=== PATIENT | male | born 1980 | race Two or more races ===

== ENCOUNTER 2025-06-08 14:10 | Inpatient (IN) | payer BC, MEDICAID ==
[~2025-06-08] VITALS: Ht 182.9 cm; Wt 78.3 kg
--- NOTE | 2025-06-08 15:02 | DVH ---
CT HEAD WITHOUT CONTRAST INDICATION: fall off ladder COMPARISON: None TECHNIQUE: CT of the head without intravenous contrast. RADIATION DOSE: CTDIvol: 60.63 mGy, DLP: 1093.13 mGy*cm FINDINGS: There is no evidence of acute intracranial hemorrhage, extra-axial collection, mass effect, midline shift, herniation or hydrocephalus. The ventricles, sulci and cisterns are age appropriate. The flor-white differentiation is intact. The visualized paranasal sinuses and mastoid air cells are clear. The surrounding soft tissues and osseous structures are unremarkable. IMPRESSION: 1. No evidence of acute intracranial hemorrhage, mass effect or hydrocephalus.
--- NOTE | 2025-06-08 15:17 | DVH ---
CLINICAL INDICATION: left arm pain TECHNIQUE: 4 radiographic views of the left elbow were obtained. Comparison: None FINDINGS/IMPRESSION: Joint effusion with displacement of the olecranon and antecubital fat pads. Comminuted fracture of the proximal ulna is noted with displacement of the proximal fragment. Displaced fracture of the radial head is noted.
[2025-06-08] MEDS: HYDROcodone-ACET 5/325MG TAB PO ONE (16:01)
--- NOTE | 2025-06-08 16:14 | ED.PDOC ---
Musculoskeletal HPI Comments This is a 44 year-old male who presents to the ED with a chief complaint of L arm pain S/P fall hours ago. Patient reports hanging up [place] lights when he fell off the ladder, and the ladder fell onto his the L arm. Patient has no further complaints at this time and otherwise denies any head trauma, LOC, dizziness, weakness, or fatigue. Chief Complaint: Upper Extremity Time Seen by MD: 15:32 Reviewed Notes: Medications, Allergies Allergies: Coded Allergies: NO KNOWN ALLERGIES (Unverified , 06/08/25) Information Source: Patient Mode of Arrival: Ambulatory Location: Left Extremity Location: Arm Timing: Hours Prehospital treatment: None Severity: Moderate Pain: Moderate Circumstances: Fall Onset of Symptoms: After Trauma Symptoms: Swelling, Pain Associated signs and symptoms: Arm pain Past Medical History PAST MEDICAL HISTORY: Denies Surgical History: Denies all surgeries Family History Family History: Unknown Social History Smoker: Non-Smoker Alcohol: Denies ETOH Use Drugs: Denies Drug Use Lives In: Home Constitutional: denies: chills, diaphoresis, fatigue, fever, malaise, sweats, weakness, others EENTM: denies: blurred vision, double vision, ear bleeding, ear discharge, ear drainage, ear pain, ear ringing, eye pain, eye redness, hearing loss, mouth pain, mouth swelling, nasal discharge, nose bleeding, nose congestion, nose pain, photophobia, tearing, throat pain, throat swelling, voice changes, others Respiratory: denies: cough, hemoptysis, orthopnea, SOB at rest, shortness of breath, SOB with excertion, stridor, wheezing, others Cardiovascular: denies: chest pain, dizzy spells, diaphoresis, Dyspnea on exertion, edema, irregular heart beat, left arm pain, lightheadedness, palpitations, PND, syncope, others Gastrointestinal: denies: abdomen distended, abdominal pain, blood streaked bowels, constipated, diarrhea, dysphagia, difficulty swallowing, hematemesis, melena, nausea, poor appetite, poor fluid intake, rectal bleeding, rectal pain, vomiting, others Genitourinary: denies: burning, dysuria, flank pain, frequency, hematuria, incontinence, penile discharge, penile sore, pain, testicle pain, testicle swelling, urgency, others Neurological: denies: dizziness, fainting, headache, left sided numbness, left sided weakness, numbness, paresthesia, pre-existing deficit, right sided numbne ss, right sided weakness, seizure, speech problems, tingling, tremors, weakness, others Musculoskeletal: reports: joint pain, joint swelling; denies: back pain, gout, muscle pain, muscle stiffness, neck pain, others Integumetry: denies: bruises, change in color, change in hair/nails, dryness, laceration, lesions, lumps, rash, wounds, others Allergic/Immunocompromised: denies: Difficulty Healing, Frequent Infections, Hives, Itching, others Hematologic/Lymphatic: denies: anemia, blood clots, easy bleeding, easy bruising, swollen glands, others Endocrine: denies: excessive hunger, excessive sweating, excessive thirst, excessive urination, flushing, intolerance to cold, intolerance to heat, unexplained weight gain, unexplained weight loss, others Psychiatric: denies: anxiety, bipolar disorder, depression, hopeless, panic disorder, schizophrenia, sleepless, suicidal, others All Other Systems: Reviewed and Negative Physical Exam General Appearance: No Apparent Distress HEENT: Pharynx Normal Neck: Normal Inspection Respiratory: No Respiratory Distress Cardiovascular: No Edema Breast Exam: Deferred Gastrointestinal: No Organomegaly Genitalia: Deferred Pelvic: Deferred Rectal: Deferred Extremities: Other (obvious deformity to left elbow, pulses and sensation intact) Neurologic: Normal Mood Cerebellar Function: NOT DONE Reflexes: NOT DONE Skin: Normal Color Lymphatic: NOT DONE Was a procedure done? Was a procedure done?: No Differential Diagnosis EXT Differential Diagnosis: Fracture, Sprain, Dislocation X-Ray, Labs, Meds, VS Vital Signs Date Time Temp Pulse Resp B/P (MAP) Pulse Ox O2 Delivery O2 Flow Rate FiO2 06/08/25 18:53 98.1 100 18 108/67 (81) 97 98.1 06/08/25 15:55 98.3 101 18 122/90 (101) 100 98.3 06/08/25 15:55 101 18 100 Room Air 06/08/25 14:15 97.7 96 13 112/80 96 97.7 Lab Test 06/08/25 18:58 Range/Units White Blood Count 15.3 H 4.4-10.8 10^3/uL Red Blood Count 5.06 4.5-5.90 10^6/uL Hemoglobin 15.6 13.5-17.5 g/dL Hematocrit 46.5 41.0-53.0 % Mean Corpuscular Volume 91.8 80.0-100.0 fL Mean Corpuscular Hemoglobin 30.9 28.0-32.0 pg Mean Corpuscular Hemoglobin Concent 33.6 32.0-36.0 g/dL Red Cell Distribution Width 13.0 11.8-14.3 % Platelet Count 385 140-450 10^3/uL Mean Platelet Volume 6.1 L 6.9-10.8 fL Neutrophils (%) (Auto) 79.6 37.0-80.0 % Lymphocytes (%) (Auto) 11.3 10.0-50.0 % Monocytes (%) (Auto) 8.6 0.0-12.0 % Eosinophils (%) (Auto) 0.1 0.0-7.0 % Basophils (%) (Auto) 0.4 0.0-2.0 % Neutrophils # (Auto) 12.2 H 1.6-8.6 10 ^3/uL Lymphocytes # (Auto) 1.7 0.4-5.4 10 ^3/uL Monocytes # (Auto) 1.3 0-1.3 10 ^3/uL Eosinophils # (Auto) 0 0-0.8 10 ^3/uL Basophils # (Auto) 0.1 0-0.2 10 ^3/uL Nucleated Red Blood Cells 0.0 % Prothrombin Time 10.9 9.3-11.8 sec Prothrombin Time INR 1.03 0.9-1.15 Activated Partial Thromboplast Time 24.1 L 24.5-34.5 SEC Sodium Level 140 136-145 mmol/L Potassium Level 4.5 3.5-5.1 mmol/L Chloride Level 101 98-107 mmol/L Carbon Dioxide Level 27 20-31 mmol/L Anion Gap 12 5-15 Blood Urea Nitrogen 13 9-23 mg/dL Creatinine 1.60 H 0.700-1.30 mg/dL Glomerular Filtration Rate Calc 54 >90 mL/min BUN/Creatinine Ratio 8.1 L 10.0-20.0 Serum Glucose 149 H 74-106 mg/dL Calcium Level 9.4 8.7-10.4 mg/dL Current Medications Medications (Trade) Dose Ordered Sig/Cameron Route Start Time Stop Time Status Last Admin Acetaminophen/ Hydrocodone Bitart ([place] 5/325MG Tab) 1 tab ONCE ONCE PO 06/08/25 14:30 06/08/25 14:31 DC 06/08/25 16:[address] [address] Ph: [phone] DIAGNOSTIC IMAGING Diagnostic Imaging Report : [id number] Signed PATIENT: CAM MITCHELL ACCT: [id number] UNIT: [id number] : 1980 LOC: ER ROOM / BED: / AGE / SEX: 44 / M ADM STATUS: REG ER SERVICE 26 ORDERING PHYSICIAN: CASA JAMIL MD PROCEDURE(s): HWOCT - HEAD WITHOUT CONTRAST REASON: fall off ladder ORDER NUMBER(s): [id number], ACCESSION NUMBER(s): [id number] CT HEAD WITHOUT CONTRAST INDICATION: fall off ladder COMPARISON: None TECHNIQUE: CT of the head without intravenous contrast. RADIATION DOSE: CTDIvol: 60.63 mGy, DLP: 1093.13 mGy*cm FINDINGS: There is no evidence of acute intracranial hemorrhage, extra-axial collection, mass effect, midline shift, herniation or hydrocephalus. The ventricles, sulci and cisterns are age appropriate. The flor-white differentiation is intact. The visualized paranasal sinuses and mastoid air cells are clear. The surrounding soft tissues and osseous structures are unremarkable. IMPRESSION: 1. No evidence of acute intracranial hemorrhage, mass effect or hydrocephalus. [address] [address] Ph: [phone] DIAGNOSTIC IMAGING Diagnostic Imaging Report : [id number] Signed PATIENT: CAM MITCHELL ACCT: [id number] UNIT: [id number] : 1980 LOC: ER ROOM / BED: / AGE / SEX: 44 / M ADM STATUS: REG ER SERVICE 26 ORDERING PHYSICIAN: CASA JAMIL MD PROCEDURE(s): LELB3 - L ELBOW 3 VIEW XRAY REASON: left arm pain ORDER NUMBER(s): [id number], ACCESSION NUMBER(s): [id number] CLINICAL INDICATION: left arm pain TECHNIQUE: 4 radiographic views of the left elbow were obtained. Comparison: None FINDINGS/IMPRESSION: Joint effusion with displacement of the olecranon and antecubital fat pads. Comminuted fracture of the proximal ulna is noted with displacement of the proximal fragment. Displaced fracture of the radial head is noted. Time of 1ST Reevaluation: 16:19 Reevaluation 1ST: Unchanged Patient Education/Counseling: Diagnosis, Treatment Family Education/Counseling: No Family Present Departure 1 Departure Time of Disposition: 18:25 (Patient with a comminuted fracture of the left elbow likely requiring surgery. Discussed the case with orthopedics who recommended admission to the hospital splinting and they possibly will take to surgery tomorrow.) Impression: Primary Impression: Left elbow fracture Disposition: ADMITTED INPATIENT Admit to: Med Surg Condition: Serious Critical Care Note Critical Care Time?: No Stability Stability form required: No Heart Score Heart Score: Heart Score Response (Comments) Value History N/A 0 EKG N/A 0 Age N/A 0 Risk Factors N/A 0 Troponin N/A 0 Total 0 I personally scribed for CASA JAMIL MD ([email or web address]) on 06/08/25 at 16:14. Electronically submitted by Keira [facility]). CASA JAMIL MD Jun 08, 2025 16:14
--- NOTE | 2025-06-08 19:03 | DVH ---
EXAM: XY CHEST PORTABLE HISTORY: pre-op TECHNIQUE: 1 view of the chest COMPARISON: None FINDINGS/IMPRESSION: LUNGS: No pleural effusion, consolidation, or pneumothorax. MEDIASTINUM: Normal cardiac size . Possible inconspicuous calcific granulomas in the left hilum. If continued clinical concern, consider further evaluation with CT of the chest with contrast. BONES: No acute osseous abnormality. OTHER: None.
[2025-06-08 19:28] LABS: Hematocrit 46.5 % (41.0-53.0); Hemoglobin 15.6 g/dL (13.5-17.5); Mean Corpuscular Hemoglobin 30.9 pg (28.0-32.0); Mean Corpuscular Volume 91.8 fL (80.0-100.0); Nucleated Red Blood Cells % 0.0 %
[2025-06-08 19:36] LABS: Chloride 101 mmol/L (98-107); Potassium 4.5 mmol/L (3.5-5.1); Sodium 140 mmol/L (136-145)
[2025-06-08 19:37] LABS: Anion Gap 12 (5-15); Carbon Dioxide 27 mmol/L (20-31)
[2025-06-08 19:38] LABS: Calcium 9.4 mg/dL (8.7-10.4)
[2025-06-08 19:41] LABS: INR 1.03 (0.9-1.15); Partial Thromboplastin Time 24.1 SEC (24.5-34.5); Prothrombin Time 10.9 sec (9.3-11.8)
[2025-06-08 19:42] LABS: BUN/Creatinine Ratio 8.1 (10.0-20.0); Blood Urea Nitrogen 13 mg/dL (9-23)
[2025-06-08 19:44] LABS: Glucose 149 mg/dL (74-106)
[2025-06-08] MEDS ORDERED: HYDROcodone-ACET 5/325MG TAB PO PRN (21:15)
[2025-06-08] MEDS: HYDROcodone-ACET 5/325MG TAB PO PRN (21:28)
[2025-06-08] MEDS ORDERED: MORPHINE SULFATE INJ 2 MG/ml SYRG IV PRN ×2 (22:45)
[2025-06-08] MEDS ORDERED: ONDANSETRON HCL 4 MG/2 ML VIAL IV PRN (22:45)
[2025-06-08] MEDS ORDERED: ACETAMINOPHEN 325 MG TAB PO PRN (22:45)
[2025-06-08] MEDS ORDERED: NITROGLYCERIN 0.4 MG SL TAB SL PRN (22:45)
[2025-06-08] MEDS ORDERED: DOCUSATE SOD 100 MG CAP PO PRN (22:45)
--- NOTE | 2025-06-08 22:59 | DVHHP2 ---
History of Present Illness Reason for Visit: Left elbow fracture History of Present Illness The patient is a 44-year-old male who denies past medical history presented to [facility] ED for evaluation of fall with injury. Patient reports that he was hanging up [place] lights when he fell off the ladder, and the l adder fell onto his the left arm with sustained injury. Patient was seen and evaluated in the ED, laboratory data shows elevated WBC 15.3, platelets 385, sodium 140, potassium 4.5, BUN 13, creatinine 1.60, GFR 54, glucose 149, calcium 9.4, blood pressure 108/67, heart rate 100, temperature 98.1 F, O2 saturation 97% on room air. Left elbow x-ray revealing joint effusion with displacement of the olecranon and antecubital fat pads; comminuted fracture of the proximal ulna is noted with displacement of the proximal fragment; displaced fracture of the radial head is noted. Please see medication orders section in the computer. On my assessment, patient denied chest pain, no headache, loss of consciousness, dizziness, diaphoresis, shortness of breaths, no abdominal pain, diarrhea, nausea, vomiting, fever, no chills. Patient was admitted for further evaluation and medical management. Past Medical History Denies past medical history Past Surgical History Denies all surgeries Family History Reviewed, noncontributory to the management of this case. Past Social History The patient lives at home, denies smoking, alcohol or illicit drugs abuse. Review of Systems Constitutional: No: Fever, Chills, Sweats, Weakness, Malaise, Other Eyes: No: Pain, Vision change, Conjunctivae inflammation, Eyelid inflammation, Other, Redness ENT: No: Ear pain, Ear discharge, Nose pain, Nose discharge, Nose congestion, Mouth pain, Mouth swelling, Throat pain, Throat swelling, Other Respiratory: No: Cough, Dry, Shortness of breath, SOB with excertion, Wheezing, Hemoptysis, Pleuritic Pain, Sputum, Wheezing, Other Cardiovascular: No: Chest Pain, Palpitations, Orthopnea, Paroxysmal Noc. Dyspnea, Edema, Lt Headedness, Other Gastrointestinal: No: Nausea, Vomiting, Abdominal Pain, Diarrhea, Constipation, Melena, Hematochezia, Other Genitourinary: No Dysuria, No Frequency, No Incontinence, No Hematuria, No Retention, No Other Musculoskeletal: other ( joint pain, joint swelling;); No: neck pain, shoulder pain, arm pain, back pain, hand pain, leg pain, foot pain Skin: No: Rash, Lesions, Jaundice, Bruising, Other Neurological: No: Weakness, Numbness, Incoordination, Change in speech, Confusion, Seizures, Other Allergies: Coded Allergies: NO KNOWN ALLERGIES (Unverified , 06/08/25) Medications Current Medications Medications Dose Ordered Sig/Cameron Route Start Time Stop Time Status Last Admin Dose Admin Acetaminophen/ Hydrocodone Bitart 1 tab Q6HP PRN PO 06/08/25 21:15 06/08/25 21:28 1 TAB Exam Vital Signs Vital Signs Date Time Temp Pulse Resp B/P (MAP) Pulse Ox O2 Delivery O2 Flow Rate FiO2 06/08/25 20:18 Room Air* 0 21 06/08/25 18:53 98.1 100 18 108/67 (81) 97 98.1 General Appearance: Alert, Oriented X3, Cooperative, No acute distress HEENT: Atraumatic, PERRLA, EOMI, Mucous membr. moist/pink Respiratory: Clear to auscultation, Normal air movement Cardiovascular: Regular rate, Normal S1, Normal S2, No murmurs Abdominal: Normal bowel sounds, Soft, No tenderness, No hepatospenomegaly, No masses Extremities: No clubbing, No cyanosis, No edema, Normal pulses, Other (Left tenderness/swelling) Skin: No rashes, No breakdown, No significant lesion Neuro: Normal gait, Normal speech, Normal tone, Sensation intact, Cranial nerves 3-12 NL, Reflexes 2+, Other (Left elbow pain) Psych/Mental Status: Mental status NL, Mood NL Labs/Xrays Labs Test 06/08/25 18:58 Range/Units White Blood Count 15.3 H 4.4-10.8 10^3/uL Red Blood Count 5.06 4.5-5.90 10^6/uL Hemoglobin 15.6 13.5-17.5 g/dL Hematocrit 46.5 41.0-53.0 % Mean Corpuscular Volume 91.8 80.0-100.0 fL Mean Corpuscular Hemoglobin 30.9 28.0-32.0 pg Mean Corpuscular Hemoglobin Concent 33.6 32.0-36.0 g/dL Red Cell Distribution Width 13.0 11.8-14.3 % Platelet Count 385 140-450 10^3/uL Mean Platelet Volume 6.1 L 6.9-10.8 fL Neutrophils (%) (Auto) 79.6 37.0-80.0 % Lymphocytes (%) (Auto) 11.3 10.0-50.0 % Monocytes (%) (Auto) 8.6 0.0-12.0 % Eosinophils (%) (Auto) 0.1 0.0-7.0 % Basophils (%) (Auto) 0.4 0.0-2.0 % Neutrophils # (Auto) 12.2 H 1.6-8.6 10 ^3/uL Lymphocytes # (Auto) 1.7 0.4-5.4 10 ^3/uL Monocytes # (Auto) 1.3 0-1.3 10 ^3/uL Eosinophils # (Auto) 0 0-0.8 10 ^3/uL Basophils # (Auto) 0.1 0-0.2 10 ^3/uL Nucleated Red Blood Cells 0.0 % Prothrombin Time 10.9 9.3-11.8 sec Prothrombin Time INR 1.03 0.9-1.15 Activated Partial Thromboplast Time 24.1 L 24.5-34.5 SEC Sodium Level 140 136-145 mmol/L Potassium Level 4.5 3.5-5.1 mmol/L Chloride Level 101 98-107 mmol/L Carbon Dioxide Level 27 20-31 mmol/L Anion Gap 12 5-15 Blood Urea Nitrogen 13 9-23 mg/dL Creatinine 1.60 H 0.700-1.30 mg/dL Glomerular Filtration Rate Calc 54 >90 mL/min BUN/Creatinine Ratio 8.1 L 10.0-20.0 Serum Glucose 149 H 74-106 mg/dL Calcium Level 9.4 8.7-10.4 mg/dL PATIENT: CAM MITCHELL ACCT: [id number] UNIT: [id number] : 1980 LOC: ER ROOM / BED: / AGE / SEX: 44 / M ADM STATUS: REG ER SERVICE 1427 ORDERING PHYSICIAN: CASA JAMIL MD PROCEDURE(s): LELB3 - L ELBOW 3 VIEW XRAY REASON: left arm pain ORDER NUMBER(s): [id number], ACCESSION NUMBER(s): [id number] CLINICAL INDICATION: left arm pain TECHNIQUE: 4 radiographic views of the left elbow were obtained. Comparison: None FINDINGS/IMPRESSION: Joint effusion with displacement of the olecranon and antecubital fat pads. Comminuted fracture of the proximal ulna is noted with displacement of the proximal fragment. Displaced fracture of the radial head is noted. ORDERING PHYSICIAN: CASA JAMIL MD PROCEDURE(s): HWOCT - HEAD WITHOUT CONTRAST REASON: fall off ladder ORDER NUMBER(s): [id number], ACCESSION NUMBER(s): [id number] CT HEAD WITHOUT CONTRAST INDICATION: fall off ladder COMPARISON: None TECHNIQUE: CT of the head without intravenous contrast. RADIATION DOSE: CTDIvol: 60.63 mGy, DLP: 1093.13 mGy*cm FINDINGS: There is no evidence of acute intracranial hemorrhage, extra-axial collection, mass effect, midline shift, herniation or hydrocephalus. The ventricles, sulci and cisterns are age appropriate. The flor-white differentiation is intact. The visualized paranasal sinuses and mastoid air cells are clear. The surrounding soft tissues and osseous structures are unremarkable. IMPRESSION: 1. No evidence of acute intracranial hemorrhage, mass effect or hydrocephalus. ORDERING PHYSICIAN: CASA JAMIL MD PROCEDURE(s): CXRP - CHEST PORTABLE REASON: pre-op ORDER NUMBER(s): [id number], ACCESSION NUMBER(s): [id number] EXAM: XY CHEST PORTABLE HISTORY: pre-op TECHNIQUE: 1 view of the chest COMPARISON: None FINDINGS/IMPRESSION: LUNGS: No pleural effusion, consolidation, or pneumothorax. MEDIASTINUM: Normal cardiac size . Possible inconspicuous calcific granulomas in the left hilum. If continued clinical concern, consider further evaluation with CT of the chest with contrast. BONES: No acute osseous abnormality. OTHER: None. SEPSIS Sepsis Screen Date sepsis recognized/suspect: Jun 08, 2025 Time Sepsis recognized/suspect: 1414 Recent Procedure: No On Antibiotic Therapy: No Respiratory Rate >20: No Heart Rate >90: Yes Temp<36 C (96.8 F) or >38.3 C: No SBP <90 or MAP <65 mmHG: No New Acute Mental Status Change: No Is the patient on CPAP, BIPAP,: No Physician Orders * Orthopedic Consult (06/08/25 15:55) Splints (06/08/25 ) Chest Portable (06/08/25 18:24) Electrocardigram (06/08/25 18:24) Electrocardigram (06/08/25 19:24) Electrocardigram (06/08/25 21:24) Hydrocodone-Acet 5/325mg Tab ([place] 5/32 (06/08/25 21:15) Obtain Consent For Anesthesia (06/08/25 21:55) Npo After Midnight (06/08/25 21:55) Npo (Nothing By Mouth) Diet (06/09/25 Breakfast) Obtain Consent For: (06/08/25 21:55) Obtain Consent For Anesthesia (06/08/25 21:55) Ceftriaxone Ivpb Rocephin (06/09/25 09:00) Ceftriaxone Ivpb Rocephin (06/08/25 22:45) Admit (06/08/25 22:36) Allergies (06/08/25 22:36) Code Status (06/08/25 22:36) Sodium Chloride Lock (Saline Lock Ns) (06/09/25 06:00) Oxygen Per Hour (06/08/25 22:36) Ondansetron Hcl (Zofran) (06/08/25 22:45) Docusate Sodium Capsule (Colace Capsule) (06/08/25 22:45) Enoxaparin Sodium (Lovenox) (06/09/25 10:00) Fall Risk Precautions In Place QSHIFT (06/08/25 22:36) Vital Signs Date Time Temp Pulse Resp B/P (MAP) Pulse Ox O2 Delivery O2 Flow Rate FiO2 06/08/25 20:18 Room Air* 0 21 06/08/25 18:53 98.1 100 18 108/67 (81) 97 98.1 06/08/25 15:55 98.3 101 18 122/90 (101) 100 98.3 06/08/25 15:55 101 18 100 Room Air Laboratory Tests Test 06/08/25 18:58 White Blood Count 15.3 10^3/uL (4.4-10.8) H Medications Medications Dose Ordered Sig/Cameron Route Start Time Stop Time Status Last Admin Dose Admin Acetaminophen/ Hydrocodone Bitart 1 tab ONCE ONCE PO 06/08/25 14:30 06/08/25 14:31 DC 06/08/25 16:01 1 TAB Acetaminophen/ Hydrocodone Bitart 1 tab Q6HP PRN PO 06/08/25 21:15 06/08/25 21:28 1 TAB Assessment/Plan Assessment/Plan Left elbow fracture Acute renal injury Hyperglycemia Leukocytosis, unspecified Pain and swelling of left elbow Flank 1. Admit to telemetry unit 2. Breathing treatment 3. Pain control management 4. IV antibiotic management 5. Management of fluids and electrolytes 6. Consultation for orthopedic/hospitalist 7. Diagnostic test left elbow x-ray 8. DVT prophylaxis-on Lovenox 9. Repeat labs CBC, CMP in a.m. 10. Continue with current medical management 11. Treatment plan discussed with patient and RN. Patient verbalized understanding. Plan discussed with: Patient, Other (RN) My Orders Orders - LILLIANA RAMIREZ DNP Procedure Category Date Status Time Hydrocodone-Acet PHA 06/08/25 In Process 5/325mg Tab ([place] 21:15 Ceftriaxone Ivpb PHA 06/09/25 Verified Rocephin 09:00 Ceftriaxone Ivpb PHA 06/08/25 Verified Rocephin 22:45 Admit ADMIT 06/08/25 Verified 22:36 Allergies DYLAN 06/08/25 Verified 22:36 Code Status CODE 06/08/25 Verified 22:36 Sodium Chloride Lock PHA 06/09/25 Verified (Saline Lock Ns) 06:00 Oxygen Per Hour RT 06/08/25 Verified 22:36 Ondansetron Hcl PHA 06/08/25 Verified (Zofran) 22:45 Docusate Sodium PHA 06/08/25 Verified Capsule (Colace 22:45 Enoxaparin Sodium PHA 06/09/25 Verified (Lovenox) 10:00 Fall Risk Precautions DYLAN 06/08/[address] 22:36 Problem List: (1) Left elbow fracture (2) Acute renal injury (3) Hyperglycemia (4) Leukocytosis, unspecified (5) Pain and swelling of left elbow Date of Service: Jun 08, 2025 Billing Provider: LILLIANA RAMIREZ DNP Common Visit Codes: [id number] INP/OBS CARE (HIGH) LILLIANA RAMIREZ DNP Jun 08, 2025 22:59
[2025-06-09] VITALS (10 sets, daily range): BP systolic 119–160; BP diastolic 80–95; PULSE 75–96; RESP 10–18; TEMP 97.4–98.6; O2SAT 96–98
[2025-06-09] MEDS: SODIUM CHLOR 0.9% PF (SALINE LOCK) 10ML VIAL/SYR IV SCH (06:00)
[2025-06-09 08:13] LABS: Hematocrit 43.0 % (41.0-53.0); Hemoglobin 14.5 g/dL (13.5-17.5); Mean Corpuscular Hemoglobin 30.9 pg (28.0-32.0); Mean Corpuscular Volume 91.7 fL (80.0-100.0); Nucleated Red Blood Cells % 0.0 %
[2025-06-09 08:37] LABS: Alanine Aminotransferase 102 U/L (7-40); Albumin 3.8 g/dL (3.2-4.8); Alkaline Phosphatase 100 U/L (46-116); Anion Gap 11 (5-15); BUN/Creatinine Ratio 7.1 (10.0-20.0); Bilirubin, Total 0.9 mg/dL (0.2-1.0); Blood Urea Nitrogen 8 mg/dL (9-23); Calcium 8.9 mg/dL (8.7-10.4); Carbon Dioxide 25 mmol/L (20-31); Chloride 104 mmol/L (98-107); Glucose 101 mg/dL (74-106); Potassium 3.9 mmol/L (3.5-5.1); Sodium 140 mmol/L (136-145); Total Protein 6.6 g/dL (5.7-8.2)
[2025-06-09] MEDS: ENOXAPARIN SOD 40 MG/0.4 ML SYRINGE SC SCH (09:50)
[2025-06-09 13:10] LABS: Urine Protein, UAD Negative (Negative)
[2025-06-09] MEDS ORDERED: fentaNYL CITRATE 100 MCG/2 ML VL ONE (14:04)
[2025-06-09] MEDS ORDERED: MIDAZOLAM HCL 2MG/2ML 2ml VIAL (1mg/ml) ONE (14:04)
[2025-06-09] MEDS ORDERED: ONDANSETRON HCL 4 MG/2 ML VIAL ONE (14:05)
[2025-06-09] MEDS ORDERED: LIDOCAINE 2% (LOCAL ANESTH.) PF 5ml SDV ONE (14:05)
[2025-06-09] MEDS ORDERED: METOCLOPRAMIDE HCL 5MG/ml INJ 2ml VIAL ONE (14:05)
[2025-06-09] MEDS ORDERED: PROPOFOL 10 MG/ML 20 ML IV ONE (14:05)
[2025-06-09] MEDS ORDERED: HYDROmorphone HCL 2 MG/ML VL/or syr ONE (14:35)
[2025-06-09] MEDS ORDERED: LIDOCAINE W/ EPINEPHRINE 2% INJ 20ML VIAL ONE (14:46)
[2025-06-09] MEDS ORDERED: ALBUTEROL SULFATE 90 MCG MDI IN ONE (14:53)
--- NOTE | 2025-06-09 15:08 | DVHOP2 ---
Operative Report - 2 Report Details Date: 06/09/25 Preop Diagnosis: Left comminuted olecranon/ulna/proximal radius fracture Postop Diagnosis: Left comminuted olecranon/ulna/proximal radius fracture Surgeon: Kee Taveras MD Anesthesiologist: Manoj CONNELLY Anesthesia: General Implant: ITS 7 hold proximal ulna plate Consent: The patient was informed of the risks and benefits of the procedure. These include but are not limited to complications of anesthesia, postoperative infection, incomplete relief of symptoms, recurrence of symptoms, damage to blood vessels, nerves and tendons, deep venous thrombosis, pulmonary embolism and possible need for repeat surgery in the future. Estimated Blood Loss: 20 cc Name of Procedure Performed 1. Open reduction internal fixation of left olecranon/proximal ulna fracture 2. Open reduction internal fixation of left proximal radius fracture 3. intraop fluoroscopy Procedure Details Procedure Details: Patient was identified in the preoperative holding area and the surgical site was marked. The consent was verified. He was brought into the operating room and placed supine on the operating table. General anesthesia was administered. Intravenous antibiotics were given. The extremity was prepped and draped in the usual sterile manner. A timeout was called out to confirm the identity of the patient, the nature of surgery, the site of surgery, the availability of implants and x-rays and allergies to medications.Patient placed supine with left arm across the chest on a hand table. Nonsterile tourniquet applied to the proximal arm. The left upper extremity was prepped and draped in the usual sterile fashion. A posterior midline incision was made over the left elbow, centered over the olecranon and extending distally along the subcutaneous border of the ulna. Full-thickness skin flaps were developed. The ulnar nerve was identified, prote cted, and mobilized as needed. The fracture site was exposed by subperiosteal dissection. Hematoma and interposed soft tissue were cleared. The fracture fragments were identified and reduced anatomically, with particular attention to orthodoxy of the articular surface. Patient noted to have a large olecranon fracture with comminution at proximal ulna. The radial head fracture was visualized through olecranon fracture site, and the fragments were reduced anatomically using freer. This maintained reduction. I then reduced the ulna. Definitive fixation was performed using a 7-hole ITS precontoured olecranon plate, contoured to the dorsal aspect of the proximal ulna. The plate was secured proximally and distally with a combination of locking and cortical screws, ensuring at least three bicortical screws in the distal fragment and optimal purchase in the proximal fragment. Fluoroscopy confirmed anatomic reduction and appropriate hardware placement. The articular surface was probed to ensure no step-off or gap. The wound was irrigated with copious normal saline. The ulnar nerve was returned to its anatomic position. The triceps fascia and deep tissues were closed with absorbable sutures. Subcutaneous tissue was closed with 2-0 Vicryl. Skin was closed with rissa. Sterile dressing was applied. A posterior splint was applied with the elbow in approximately 70 degrees of flexion. Condition Good Disposition Still a Patient KEE TAVERAS MD Jun 09, 2025 15:08
[2025-06-09] MEDS ORDERED: METOCLOPRAMIDE HCL 5MG/ml INJ 2ml VIAL IV PRN (15:30)
[2025-06-09] MEDS ORDERED: ONDANSETRON HCL 4 MG/2 ML VIAL IV PRN (15:30)
[2025-06-09] MEDS ORDERED: HYDROmorphone HCL 2 MG/ML VL/or syr IV PRN (15:30)
--- NOTE | 2025-06-09 16:25 | DVHPN2 ---
Subjective Patient is currently in OR for left elbow surgery. Changes from previous H/P or p: No Changes Eyes: No Pain, No Vision change, No Conjunctivae inflammation, No Eyelid inflammation, No Other, No Redness ENT: No Ear pain, No Ear discharge, No Nose pain, No Nose discharge, No Nose congestion, No Mouth pain, No Mouth swelling, No Throat pain, No Throat swelling, No Other Cardiovascular: No Chest Pain, No Palpitations, No Orthopnea, No Paroxysmal Noc. Dyspnea, No Edema, No Lt Headedness, No Other Respiratory: No Cough, No Dry, No Shortness of breath, No SOB with excertion, No Wheezing, No Hemoptysis, No Pleuritic Pain, No Sputum, No Other Gastrointestinal: No Nausea, No Vomiting, No Abdominal Pain, No Diarrhea, No Constipation, No Melena, No Hematochezia, No Other Genitourinary: No Dysuria, No Frequency, No Incontinence, No Hematuria, No Retention, No Other Musculoskeletal: other ( joint pain, joint swelling;); No neck pain, No shoulder pain, No arm pain, No back pain, No hand pain, No leg pain, No foot pain Skin: No Rash, No Lesions, No Jaundice, No Bruising, No Other Objective Vitals Vital Signs Date Time Temp Pulse Resp B/P (MAP) Pulse Ox O2 Delivery O2 Flow Rate FiO2 06/09/25 16:00 81 12 130/94 (106) 99 06/09/25 15:36 Nasal Cannula 2.0 96 06/09/25 15:15 98.6 98.6 Intake/Output Intake and Output 06/09/25 07:00 # Voids 1 Medications Current Medications Medications Dose Ordered Sig/Cameron Route Start Time Stop Time Status Last Admin Dose Admin Acetaminophen/ Hydrocodone Bitart 1 tab Q6HP PRN PO 06/08/25 21:15 06/09/25 09:27 1 TAB Ceftriaxone Sodium 50 ml @ 100 mls/hr DAILY@09 IV 06/09/25 09:00 Sodium Chloride 10 ml Q8HR IV 06/09/25 06:00 06/09/25 06:00 10 ML Ondansetron HCl 4 mg Q4HP PRN IV 06/08/25 22:45 Docusate Sodium 100 mg BIDPRN PRN PO 06/08/25 22:45 Enoxaparin Sodium 40 mg DAILY SC 06/09/25 10:00 Acetaminophen 650 mg Q6HP PRN PO 06/08/25 22:45 Morphine Sulfate 2 mg Q4HPRN PRN IV 06/08/25 22:45 Nitroglycerin 0.4 mg Q5MINP PRN SL 06/08/25 22:45 Morphine Sulfate 2 mg Q30M PRN IV 06/08/25 22:45 Cefazolin Sodium/ Dextrose 50 ml @ 50 mls/hr Q8HR IV 06/09/25 22:00 06/10/25 14:59 Laboratory Results Laboratory Tests 06/09/25 07:36 Chemistry Test 06/08/25 18:58 06/09/25 07:36 Calcium Level 9.4 mg/dL (8.7-10.4) 8.9 mg/dL (8.7-10.4) Albumin 3.8 g/dL (3.2-4.8) Total Protein 6.6 g/dL (5.7-8.2) Coagulation Test 06/08/25 18:58 Prothrombin Time 10.9 sec (9.3-11.8) Prothrombin Time INR 1.03 (0.9-1.15) Activated Partial Thromboplast Time 24.1 SEC (24.5-34.5) L LFT Test 06/09/25 07:36 Alanine Aminotransferase (ALT) 102 U/L (7-40) H Alkaline Phosphatase 100 U/L (46-116) Aspartate Amino Transferase (AST) 72 U/L (13-40) H Total Bilirubin 0.9 mg/dL (0.2-1.0) HgA1c, TSH Test 06/08/25 18:58 Hemoglobin A1c 5.5 % A1C (<5.7) Urinalysis Test 06/09/25 12:38 Urine Color Light-yellow (Yellow) Urine Clarity Clear (Clear) Urine pH 5.5 (5.0-9.0) Urine Specific [place] 1.014 (1.001-1.035) Urine Protein Negative (Negative) Urine Ketones Negative (Negative) Urine Blood Negative /uL (Negative) Urine Nitrite Negative (Negative) Urine Bilirubin Negative (Negative) Urine Urobilinogen Normal mg/dL (Negative) Urine Leukocyte Esterase Negative /uL (Negative) Urine RBC 1 /hpf (0 - 3) Urine Microscopic WBC 3 /HPF (0-3) Urine Squamous Epithelial Cells Few /hpf (<5) Urine Bacteria None seen /hpf (None Seen) Urine Mucus Few (None Seen) Urine Glucose Normal mg/dL (Normal) Assessment/Plan Assessment/Plan 44-year-old male who had a fall from the ladder found to have 1. Left elbow fracture status post ---- Open reduction internal fixation of left olecranon/proximal ulna fracture ----Open reduction internal fixation of left proximal radius fracture 2. Leukocytosis likely reactive 3. Acute kidney injury suspected secondary to vasomotor nephropathy -continue pain meds, DVT GI prophylaxis, Plan discussed with: Other Problem List: (1) Left elbow fracture (2) Pain and swelling of left elbow (3) Acute renal injury (4) Leukocytosis, unspecified Date of Service: Jun 09, 2025 Billing Provider: LUIS ALBERTO BOYCE MD Common Visit Codes: [id number] INP/OBS CARE(HIGH) LUIS ALBERTO BOYCE MD Jun 09, 2025 16:25
--- NOTE | 2025-06-09 17:31 | DVH ---
XY L ELBOW 2 VIEW XRAY INDICATION: ORIF TECHNIQUE: Intraoperative fluoroscopic images were obtained TOTAL DOSE AREA PRODUCT: 0.41 mGycm2 COMPARISON: XY L ELBOW 3 VIEW XRAY on DOS: 06/08/25 FINDINGS: Successful intraoperative fluoroscopic guidance. IMPRESSION: 1. Successful intraoperative fluoroscopic guidance and please follow up with surgical report.
--- NOTE | 2025-06-09 17:32 | DVH ---
XY C ARM FLUOROSCOPY UP TO 60MIN INDICATION: ORIF TECHNIQUE: Intraoperative fluoroscopic images were obtained TOTAL DOSE AREA PRODUCT: 0.41 mGycm2 COMPARISON: None FINDINGS: Successful intraoperative fluoroscopic guidance. IMPRESSION: 1. Successful intraoperative fluoroscopic guidance and please follow up with surgical report.
[2025-06-09] MEDS: ceFAZolin 2 GM/D5W50ml 50 ML IV SCH (22:46)
[2025-06-10 01:00] VITALS: BP 126/88; PULSE 90; RESP 18; TEMP 97.9; O2SAT 95
[2025-06-10 05:00] VITALS: BP 119/81; PULSE 84; RESP 18; TEMP 97.6; O2SAT 94
[2025-06-10 08:00] VITALS: PULSE 85
[2025-06-10 09:00] VITALS: BP 138/97; PULSE 96; RESP 16; TEMP 98.9; O2SAT 95
[2025-06-10] MEDS: HYDROcodone-ACET 5/325MG TAB ONE ×2 (10:20→14:02)
[2025-06-10 13:00] VITALS: BP 121/87; PULSE 61; RESP 16; TEMP 98.8; O2SAT 94
--- NOTE | 2025-06-10 13:32 | DVHINCON2 ---
Date of service: Jun 08, 2025 Reason for Consultation Left proximal humerus/olecranon/radial head fracture History of Present Illness 44 yo RHD m sp fall off ladder and landed onto left arm. Immediate pain/swelling/deformity/inability to bear weight or move left arm. Works at [employer]. No cp/sob/abd pain/nausea/vomiting. Past Medical History Past Medical History Denies past medical history Past Surgical History Denies all surgeries Allergies: Coded Allergies: NO KNOWN ALLERGIES (Unverified , 06/08/25) Home Meds No Active Prescriptions or Reported Meds Current Medications Current Medications Medications (Trade) Dose Ordered Sig/Cameron Route PRN Reason Start Time Stop Time Status Last Admin Acetaminophen/ Hydrocodone Bitart ([place] 5/325MG Tab) 1 tab Q6HR PRN PO PAIN SCALE 7 THRU 10 06/08/25 21:15 06/08/25 21:20 DC Acetaminophen/ Hydrocodone Bitart ([place] 5/325MG Tab) 1 tab Q6HP PRN PO PAIN SCALE 7 THRU 10 06/08/25 21:15 06/09/25 09:27 Ceftriaxone Sodium 50 ml @ 100 mls/hr DAILY@09 IV 06/09/25 09:00 Sodium Chloride (Saline Lock Ns) 10 ml Q8HR IV 06/09/25 06:00 06/09/25 06:00 Ondansetron HCl (Zofran) 4 mg Q4HP PRN IV NAUSEA / VOMITING 06/08/25 22:45 Docusate Sodium (Colace Capsule) 100 mg BIDPRN PRN PO FOR CONSTIPATION 06/08/25 22:45 Enoxaparin Sodium (Lovenox) 40 mg DAILY SC 06/09/25 10:00 Acetaminophen (Tylenol Tablet) 650 mg Q6HP PRN PO PAIN SCALE 1-3 OR TEMP>100.4 06/08/25 22:45 Morphine Sulfate 2 mg Q4HPRN PRN IV SEVERE PAIN (7-10 PAIN SCALE) 06/08/25 22:45 Nitroglycerin (Ntrostat Sublingual) 0.4 mg Q5MINP PRN SL FOR CHEST PAIN 06/08/25 22:45 Morphine Sulfate 2 mg Q30M PRN IV FOR CHEST PAIN 06/08/25 22:45 Review of Systems 10 point ROS is neg except per H PI Vital Signs Vital Signs Date Time Temp Pulse Resp B/P (MAP) Pulse Ox O2 Delivery O2 Flow Rate FiO2 06/09/25 09:00 98.6 77 16 119/88 (98) 97 98.6 06/09/25 02:22 Room Air* 0 21 Physical Exam NAD LUE: splint in place +swelling/ecchymosis +we/wf/intrinsics silt m/r/u RP 2+ Labs/Diagnostic Data Labs Test 06/09/25 12:38 06/09/25 07:36 06/08/25 18:58 Range/Units Urine Color Light-yellow Yellow Urine Clarity Clear Clear Urine pH 5.5 5.0-9.0 Urine Specific [place] 1.014 1.001-1.035 Urine Protein Negative Negative Urine Ketones Negative Negative Urine Blood Negative Negative /uL Urine Nitrite Negative Negative Urine Bilirubin Negative Negative Urine Urobilinogen Normal Negative mg/dL Urine Leukocyte Esterase Negative Negative /uL Urine RBC 1 0 - 3 /hpf Urine Microscopic WBC 3 0-3 /HPF Urine Squamous Epithelial Cells Few <5 /hpf Urine Bacteria None seen None Seen /hpf Urine Mucus Few None Seen Urine Glucose Normal Normal mg/dL White Blood Count 9.5 # 4.4-10.8 10^3/uL Red Blood Count 4.69 4.5-5.90 10^6/uL Hemoglobin 14.5 13.5-17.5 g/dL Hematocrit 43.0 41.0-53.0 % Mean Corpuscular Volume 91.7 80.0-100.0 fL Mean Corpuscular Hemoglobin 30.9 28.0-32.0 pg Mean Corpuscular Hemoglobin Concent 33.7 32.0-36.0 g/dL Red Cell Distribution Width 12.9 11.8-14.3 % Platelet Count 302 140-450 10^3/uL Mean Platelet Volume 6.2 L 6.9-10.8 fL Neutrophils (%) (Auto) 70.5 37.0-80.0 % Lymphocytes (%) (Auto) 17.3 10.0-50.0 % Monocytes (%) (Auto) 10.7 0.0-12.0 % Eosinophils (%) (Auto) 1.2 0.0-7.0 % Basophils (%) (Auto) 0.3 0.0-2.0 % Neutrophils # (Auto) 6.7 1.6-8.6 10 ^3/uL Lymphocytes # (Auto) 1.6 0.4-5.4 10 ^3/uL Monocytes # (Auto) 1.0 0-1.3 10 ^3/uL Eosinophils # (Auto) 0.1 0-0.8 10 ^3/uL Basophils # (Auto) 0 0-0.2 10 ^3/uL Nucleated Red Blood Cells 0.0 % Sodium Level 140 136-145 mmol/L Potassium Level 3.9 3.5-5.1 mmol/L Chloride Level 104 98-107 mmol/L Carbon Dioxide Level 25 20-31 mmol/L Anion Gap 11 5-15 Blood Urea Nitrogen 8 L 9-23 mg/dL Creatinine 1.12 0.700-1.30 mg/dL Glomerular Filtration Rate Calc 83 >90 mL/min BUN/Creatinine Ratio 7.1 L 10.0-20.0 Serum Glucose 101 74-106 mg/dL Calcium Level 8.9 8.7-10.4 mg/dL Total Bilirubin 0.9 0.2-1.0 mg/dL Aspartate Amino Transferase (AST) 72 H 13-40 U/L Alanine Aminotransferase (ALT) 102 H 7-40 U/L Alkaline Phosphatase 100 46-116 U/L Total Protein 6.6 5.7-8.2 g/dL Albumin 3.8 3.2-4.8 g/dL Prothrombin Time 10.9 9.3-11.8 sec Prothrombin Time INR 1.03 0.9-1.15 Activated Partial Thromboplast Time 24.1 L 24.5-34.5 SEC Hemoglobin A1c 5.5 <5.7 % A1C Plan/Recommendation 44 yo M with displaced left olecranon/proximal ulna/ radial head fracture 1. Plan for open reduction internal fixation of left elbow fracture I had a long discussion with the patient regarding her condition. Questions for patient answered. Risks benefits options and alternatives reviewed in depth. RIs ks include but not exclusive to bleeding infection nerve injury hardware failure nonunion malunion chronic pain blood clots cardiac and pulmonary complications amputation and . Patient understands the morbidity and mortality of intra- articular fractures. He wishes to proceed with surgery 2. NPO/IVF 3. pain control Plan discussed with: Patient KARLA CARDOSO MD Jun 09, 2025 14:00
[2025-06-10] MEDS: BUPIVACAINE 0.25% INJ 50ML VIAL ONE ×2 (14:02)
[2025-06-10] MEDS: ACETAMINOPHEN IV 1000 MG/100ML (10MG/ML) IV ONE (14:03)
[2025-06-10] MEDS: KETOROLAC TROMETH 30 MG/ML 1ML VIAL IV ONE (14:03)
[2025-06-10] MEDS ORDERED: POLY335015 PO (15:43)
[2025-06-10] MEDS ORDERED: HYDR-4902 PO (15:43)
[2025-06-10] MEDS ORDERED: NALO4SPR2 (15:43)
--- NOTE | 2025-06-10 15:45 | DVHDS2 ---
Discharge Summary Date of Admission Jun 08, 2025 at 22:36 Date of Discharge: Jun 10, 2025 Labs/Diagnostic Data: Laboratory Results Test 06/09/25 12:38 06/09/25 07:36 06/08/25 18:58 Urine Color Light-yellow (Yellow) Urine Clarity Clear (Clear) Urine pH 5.5 (5.0-9.0) Urine Specific [place] 1.014 (1.001-1.035) Urine Protein Negative (Negative) Urine Ketones Negative (Negative) Urine Blood Negative /uL (Negative) Urine Nitrite Negative (Negative) Urine Bilirubin Negative (Negative) Urine Urobilinogen Normal mg/dL (Negative) Urine Leukocyte Esterase Negative /uL (Negative) Urine RBC 1 /hpf (0 - 3) Urine Microscopic WBC 3 /HPF (0-3) Urine Squamous Epithelial Cells Few /hpf (<5) Urine Bacteria None seen /hpf (None Seen) Urine Mucus Few (None Seen) Urine Glucose Normal mg/dL (Normal) White Blood Count 9.5 10^3/uL (4.4-10.8) Red Blood Count 4.69 10^6/uL (4.5-5.90) Hemoglobin 14.5 g/dL (13.5-17.5) Hematocrit 43.0 % (41.0-53.0) Mean Corpuscular Volume 91.7 fL (80.0-100.0) Mean Corpuscular Hemoglobin 30.9 pg (28.0-32.0) Mean Corpuscular Hemoglobin Concent 33.7 g/dL (32.0-36.0) Red Cell Distribution Width 12.9 % (11.8-14.3) Platelet Count 302 10^3/uL (140-450) Mean Platelet Volume 6.2 fL (6.9-10.8) Neutrophils (%) (Auto) 70.5 % (37.0-80.0) Lymphocytes (%) (Auto) 17.3 % (10.0-50.0) Monocytes (%) (Auto) 10.7 % (0.0-12.0) Eosinophils (%) (Auto) 1.2 % (0.0-7.0) Basophils (%) (Auto) 0.3 % (0.0-2.0) Neutrophils # (Auto) 6.7 10 ^3/uL (1.6-8.6) Lymphocytes # (Auto) 1.6 10 ^3/uL (0.4-5.4) Monocytes # (Auto) 1.0 10 ^3/uL (0-1.3) Eosinophils # (Auto) 0.1 10 ^3/uL (0-0.8) Basophils # (Auto) 0 10 ^3/uL (0-0.2) Nucleated Red Blood Cells 0.0 % Sodium Level 140 mmol/L (136-145) Potassium Level 3.9 mmol/L (3.5-5.1) Chloride Level 104 mmol/L (98-107) Carbon Dioxide Level 25 mmol/L (20-31) Anion Gap 11 (5-15) Blood Urea Nitrogen 8 mg/dL (9-23) Creatinine 1.12 mg/dL (0.700-1.30) Glomerular Filtration Rate Calc 83 mL/min (>90) BUN/Creatinine Ratio 7.1 (10.0-20.0) Serum Glucose 101 mg/dL (74-106) Calcium Level 8.9 mg/dL (8.7-10.4) Total Bilirubin 0.9 mg/dL (0.2-1.0) Aspartate Amino Transferase (AST) 72 U/L (13-40) Alanine Aminotransferase (ALT) 102 U/L (7-40) Alkaline Phosphatase 100 U/L (46-116) Total Protein 6.6 g/dL (5.7-8.2) Albumin 3.8 g/dL (3.2-4.8) Prothrombin Time 10.9 sec (9.3-11.8) Prothrombin Time INR 1.03 (0.9-1.15) Activated Partial Thromboplast Time 24.1 SEC (24.5-34.5) Hemoglobin A1c 5.5 % A1C (<5.7) Other Laboratory Tests 06/09/25 07:36 Brief Hx & Hospital Course: 44-year-old male who had a fall from the ladder found to have left elbow fracture. Patient was eventually admitted started on pain medication DVT GI prophylaxis. Orthopedic evaluation was done patient underwent open reduction and internal fixation of the left olecranon proximal ulna fracture as well as open reduction and internal fixation of the left proximal radius fracture. Postoperatively patient did fairly well. Patient is being discharged under stable condition on p.o. pain meds. Nonweightbearing of the left upper extremity. Please follow up with the Orthopedics upon discharge in 1-2 weeks. Condition at Discharge: Stable Final Diagnosis/Problems List 44-year-old male who had a fall from the ladder found to have 1. Left elbow fracture status post ---- Open reduction internal fixation of left olecranon/proximal ulna fracture ----Open reduction internal fixation of left proximal radius fracture 2. Leukocytosis likely reactive 3. Acute kidney injury suspected secondary to vasomotor nephropathy -continue pain meds, DVT GI prophylaxis Discharge Disposition: Home SNF Discharge Will this Physician continue t: No Discharge Instruct/Medications Diet: Cardiac 2g Na,low cholest Activity: See Comment Activity comment: No driving, no sign of legal documents, no bleeding on machinery while on narcotics. Follow Up/Referral: Please follow up with the PCP in 1-2 weeks Follow up with the orthopedic seen 1-2 weeks Medications: Resume home medication, [place] Narcan and MiraLax as prescribed. New Medications: Hydrocodone-Acetaminophen (Hydrocodone Bitartrate/AC 5-325 mg) 1 Tab Tab 1 TAB PO Q6HP PRN, #14 TAB Naloxone HCl (Narcan) 4 Mg/0.1 Ml Spr 4 MG NA [employer], #2 SPRAY Polyethylene Glycol 3350 (Miralax) 17 Gm Pow 17 GM PO DAILYP PRN, #14 POW Scheduled Cephalexin Monohydrate (Cephalexin), 500 MG PO TID, (Reported) Naloxone HCl (Narcan), 4 MG NA [employer] Scheduled PRN Hydrocodone-Acetaminophen (Hydrocodone Bitartrate/AC 5-325 mg), 1 TAB PO Q6HP PRN Polyethylene Glycol 3350 (Miralax), 17 GM PO DAILYP PRN Discharge Statement: "Patient was advised to return to the ER or call 911 if any headaches, dizziness, shortness of breath, chest pain, abdominal pain, bleeding, fevers, or worsening of medical condition. Patient was counseled about treatment plan, medications, possible side effects, patientverbalized understanding. All questions were answered to the best of my ability. This discharge took greater then 30 minutes in planning, reviewing documentation, counseling the patient, and discussing with other team members." ASSESSMENT ASSESSMENT Assessment 44-year-old male who had a fall from the ladder found to have 1. Left elbow fracture status post ---- Open reduction internal fixation of left olecranon/proximal ulna fracture ----Open reduction internal fixation of left proximal radius fracture 2. Leukocytosis likely reactive 3. Acute kidney injury suspected secondary to vasomotor nephropathy -continue pain meds, DVT GI prophylaxis Date of Service: Jun 10, 2025 Billing Provider: LUIS ALBERTO BOYCE MD Common Visit Codes: [id number] DISCH DAY >30min LUIS ALBERTO BOYCE MD Jun 10, 2025 15:45
[2025-06-10] MEDS ORDERED: CEPH500C PO (17:29)
[2025-06-10] MEDS ORDERED: ASPI-543 PO (17:31)
== END 2025-06-10 18:00 | disposition home or self-care (01) | DRG 510 ==
LOC: ER 14:10 → OVERFLOW 22:36 → TELE-CENTR 06-09 16:10
PROVIDERS: ADMIT Internal Medicine; ATTEND Internal Medicine
PROC: 0PSJ04Z Reposition Left Radius with Internal Fixation Device, Open Approach (ICD-10-PCS; 2025-06-09)
PROC: 0PSL04Z Reposition Left Ulna with Internal Fixation Device, Open Approach (ICD-10-PCS; principal; 2025-06-09 14:03)
DX: S52.022A Displaced fracture of olecranon process without intraarticular extension of left ulna, initial encounter for closed fracture (principal); N17.0 Acute kidney failure with tubular necrosis; S52.122A Displaced fracture of head of left radius, initial encounter for closed fracture; D72.829 Elevated white blood cell count, unspecified; R73.9 Hyperglycemia, unspecified; W11.XXXA Fall on and from ladder, initial encounter; Y93.89 Activity, other specified; Y92.89 Other specified places as the place of occurrence of the external cause; Y99.8 Other external cause status
CPT/HCPCS: 36415; 70450; 71045; 73070; 73080; 76000; 80048; 80053; 81001; 83036; 85025; 85610; 85730; 86850; 86900; 86901; 97163; G0378; J1100; J2003; J2250; J2405; J2704; J3490